=== PATIENT | male | born 1970 | race Caucasian/White ===

== ENCOUNTER 2020-11-08 11:03 | Emergency (ER) | payer OTHER ==
[~2020-11-08] VITALS: Ht 180.3 cm; Wt 106.6 kg
[2020-11-08] MEDS ORDERED: KETO10TA2 PO (15:23)
[2020-11-08] MEDS ORDERED: NORFLEX100MG PO (15:23)
== END 2020-11-08 16:14 | disposition home or self-care (01) ==
LOC: ER 11:03
DX: M25.561 Pain in right knee (principal)